=== PATIENT | male | born 1960 | race Caucasian/White ===

== ENCOUNTER 2021-06-21 22:05 | Emergency (ER) | payer OTHER, SELFPAY ==
[2021-06-21 22:13] VITALS: BP 153/82; PULSE 68; RESP 16; TEMP 36.8; O2SAT 98; BMI 31.9
--- NOTE | 2021-06-21 22:13 | ED.GENADULT ---
HPI - General Adult General Chief complaint: Blood/Body fluid exposure Stated complaint: NEEDLE STICK Time Seen by Provider: 06/21/21 22:11 Source: patient Mode of arrival: Ambulatory History of Present Illness HPI narrative: Patient is a 60-year-old male. He is up-to-date on his tetanus. Has received hepatitis B vaccination. He is a nurse here at the ICU. He sustained a needlestick to his right index finger. This was a used needle. It was a subcutaneous insulin needle. Related Data Home Medications Medication Instructions Recorded Confirmed acyclovir 800 mg tablet 800 mg PO DAILY 05/09/21 05/09/21 tadalafil 20 mg tablet 20 mg PO DAILY PRN 05/09/21 05/09/21 Previous Rx's Medication Instructions Recorded hydrocodone 10 mg-acetaminophen 1 tab PO Q6H PRN #30 tab 05/09/21 325 mg tablet Allergies Allergy/AdvReac Type Severity Reaction Status Date / Time No Known Drug Allergies Allergy Unverified 05/09/21 11:15 Review of Systems Musculoskeletal Musculoskeletal: Reports system reviewed and no additional complaints, except as documented and Reports as per HPI Integumentary/Breasts Skin/Breast: Reports system reviewed and no additional complaints, except as documented and Reports as per HPI Hematologic/Lymphatic On Anticoagulants: No Patient History Medical History Cervical vertebral fusion Social History Smoking Status: Never smoker Smoking Status: Never smoker Exam Initial Vital Signs Initial Vital Signs: Vital Signs Temperature 98.2 F 06/21/21 22:13 Pulse Rate 68 06/21/21 22:13 Respiratory Rate 16 06/21/21 22:13 Blood Pressure 153/82 H 06/21/21 22:13 Pulse Oximetry 98 06/21/21 22:13 Skin General: no rashes or lesions noted Other: No bleeding or breaks in the skin noted at the site of the injection Neuro General: patient alert, patient awake and patient oriented x3 Extrem General: normal to inspection and capillary refill normal Course Orders Ordered: ED Orders 06/21/21 22:36 Alanine Aminotransferase Stat HIV 1 & 2 Ab/Ag 4th Gen Combo Stat Hep C Virus Ab w/Reflex Quant Stat Vital Signs Vital signs: Vital Signs - 8 hr 06/21/21 22:13 Temperature 98.2 F Pulse Rate 68 Respiratory Rate 16 Blood Pressure 153/82 H Pulse Oximetry 98 Medical Decision Making Lab Data Labs: Lab Results 06/21/21 06/21/21 Range/Units 22:36 22:36 ALT 22 (<50) IU/L Hepatitis C Antibody Negative (NEGATIVE) s/c HIV 1&2 Ab/P24 Ag 4thGn Negative (NEGATIVE) MDM Narrative Medical decision making narrative: Patient is immunized against hepatitis B. is also up-to-date on his tetanus shot. This was a used insulin needle but was a subcutaneous injection. Very low risk for blood borne infection transmission. Labs drawn. HIV is negative. Patient was informed of his results. Labs will also be drawn from the source patient. Given the nature of the wound I did recommend against post exposure prophylaxis. I did discuss this with the patient. He expressed understanding and agreement with this. Was given return precautions. Discharge Plan Departure Patient Disposition: Home Clinical Impression: Needlestick injury of finger Instructions: DI for Accidental Exposure to Body Fluids Activity Restrictions/Additional Instructions: Your risk of developing a infection from the needle stick today is very low. You do have lab tests that are pending at the time of your discharge. Please contact your primary doctor for a follow-up. Return to the emergency department for any new or worsening symptoms. Prescriptions: No Action tadalafil 20 mg tablet 20 mg PO DAILY PRNRF: 0 acyclovir 800 mg tablet 800 mg PO DAILY RF: 0 hydrocodone-acetaminophen 10-325 mg tablet 1 tab PO Q6H PRN (Reason: pain) Qty: 30 RF: 0
[2021-06-21 23:02] LABS: Alanine Aminotransferase 22 IU/L (<50)
[2021-06-21 23:52] LABS: HIV 1 & 2 Ab/Ag 4th Gen Combo NEGATIVE (NEGATIVE); Hep C Virus Ab w/Reflex Quant NEGATIVE s/c (NEGATIVE)
[2021-06-23 06:38] LABS: Hepatitis B Surf Ab Qualitativ Reactive (.)
== END 2021-06-21 23:12 | disposition home or self-care (01) ==
PROVIDERS: Emergency Provider Emergency Medicine
DX: Z77.21 Contact with and (suspected) exposure to potentially hazardous body fluids (principal); W46.1XXA Contact with contaminated hypodermic needle, initial encounter; Y99.0 Civilian activity done for income or pay
CPT/HCPCS: 36415; 84460; 86706; 86803; 87389; 99283